=== PATIENT | female | born 1945 | race Two or more races ===

== ENCOUNTER 2021-08-21 15:19 | Inpatient (IN) | payer MEDICARE ==
[~2021-08-21] VITALS: Ht 162.6 cm; Wt 54.0 kg
--- NOTE | 2021-08-21 15:48 | NUR ---
CALLED JANINE,[phone], SHE IS THEIR RESIDENT AT [facility], DNR STATUS, SHE WILL FAX US DNR AND CLINICALS.
--- NOTE | 2021-08-21 15:50 | NUR ---
DR. HOPSON AT BS FOR EVAL.
--- NOTE | 2021-08-21 16:12 | NUR ---
MARY TEE) FROM A [facility]IALYS[facility],TREATMENT DISCONTINUED AFTER 2 HRS WHEN PATIENT BECAME "LETHARGIC AND SOB". PT EYES CLOSED BUT WILL OPEN EYES WITH PAINFUL STIMULI. PLACED ON VENT, O2 SAT 99%. RR EVEN & UNLABORED. PLACED ON MARKETING PROGRAM COORDINATOR, SR. WILL CONT TO MONITOR.
[2021-08-21 16:18] LABS: BASOPHILS % (AUTO) 0.2 % (0.0-2.0); CALCIUM, SERUM 7.7 mg/dL (8.5-10.1); CARBON DIOXIDE 26 mmol/L (21-32); CHLORIDE 104 mmol/L (98-107); CREATININE 1.3 mg/dL (0.6-1.3); EOSINOPHILS % (AUTO) 2.3 % (0.0-6.0); GLUCOSE 118 mg/dL (74-106); HEMATOCRIT 36 % (33-45); HEMOGLOBIN 10.6 g/dL (11.5-14.8); LYMPHOCYTES # (AUTO) 0.3 K/uL (0.8-4.8); LYMPHOCYTES % (AUTO) 2.2 % (20.0-44.0); MEAN CORPUSCULAR HGB CONC 30 g/dl (31.0-36.0); MEAN CORPUSCULAR VOLUME 98 fL (82-100); MONOCYTES # (AUTO) 0.8 K/uL (0.1-1.30); MONOCYTES % (AUTO) 5.6 % (2.0-12.0); NEUTROPHILS # (AUTO) 13.3 K/uL (1.8-8.9); NEUTROPHILS % (AUTO) 89.7 % (43.0-81.0); PLATELET COUNT (AUTO) 91 K/uL (150-450); RED BLOOD CELL COUNT(AUTO) 3.68 MIL/uL (4.0-5.2); SODIUM SERUM 134 mmol/L (136-145); UREA NITROGEN, BLOOD 42 mg/dL (7-18); WHITE BLOOD COUNT (AUTO) 14.8 K/uL (4.3-11.0)
[2021-08-21 16:24] LABS: ALANINE AMINOTRANSFERASE 44 U/L (12-78); ALBUMIN 1.7 g/dL (3.4-5.0); ALCOHOL, BLOOD < 3 mg/dL (0-0); ALKALINE PHOSPHATASE 364 U/L (46-116); ASPARTATE AMINOTRANSFERASE 67 U/L (15-37); BILIRUBIN,DIRECT 0.3 mg/dL (0.0-0.2); BILIRUBIN,TOTAL 0.6 mg/dL (0.2-1.0); TOTAL PROTEIN, SERUM 7.4 g/dL (6.4-8.2)
[2021-08-21 16:31] LABS: SERUM AMMONIA 21 umol/L (11-32)
[2021-08-21] MEDS ORDERED: MIDO10TA GT (16:41)
[2021-08-21] MEDS ORDERED: ACET325T53 GT (16:41)
[2021-08-21] MEDS ORDERED: PANT40TA49 GT (16:41)
[2021-08-21] MEDS ORDERED: SENN1TAB33 GT (16:41)
[2021-08-21] MEDS ORDERED: IPRA3AMP23 IH (16:41)
[2021-08-21] MEDS ORDERED: QUET25TA GT (16:41)
[2021-08-21] MEDS ORDERED: HYDR-4303 GT (16:41)
[2021-08-21] MEDS ORDERED: BUDE0.5A4 IH (16:41)
[2021-08-21] MEDS ORDERED: SIME80TA15 GT (16:41)
[2021-08-21] MEDS ORDERED: ATOR40TA GT (16:41)
[2021-08-21] MEDS ORDERED: MIDO5TAB4 PO (16:41)
[2021-08-21] MEDS ORDERED: DARB10SY IJ (16:41)
[2021-08-21] MEDS ORDERED: LEVO100T9 GT (16:41)
[2021-08-21] MEDS ORDERED: LACT10SO3 GT (16:41)
[2021-08-21] MEDS ORDERED: METO25TA6 GT (16:41)
[2021-08-21] MEDS ORDERED: SEVE800T8 GT (16:41)
[2021-08-21] MEDS ORDERED: AMIO200T5 PO (16:41)
[2021-08-21] MEDS ORDERED: ALPR0.255 GT (16:41)
[2021-08-21 16:43] LABS: THYROID STIMULATING HORMONE 75.364 uIU/mL (0.358-3.74)
[2021-08-21] MEDS ORDERED: INSU100V39 SQ (16:45)
[2021-08-21] MEDS ORDERED: INSU100V7 SQ (16:45)
[2021-08-21] MEDS ORDERED: HEPA100D33 SUBCUT (16:45)
[2021-08-21] MEDS ORDERED: ASCO500C17 GT (16:45)
[2021-08-21] MEDS ORDERED: FOLI0.8T2 PO (16:45)
[2021-08-21] MEDS ORDERED: ZINC220C6 GT (16:45)
[2021-08-21 17:04] LABS: BAND % (MANUAL) 4 % (0.0-5.0); EOSINOPHILS % (MANUAL) 2 % (0-4); LYMPHOCYTES % (MANUAL) 5 % (16-48); MONOCYTES % (MANUAL) 6 % (0-11.0); NEUTROPHILS % (MANUAL) 83 (42-76)
[2021-08-21] MEDS ORDERED: AZITHROMYCIN 500 MG in IV D5W 250 ML IV ONE (17:30)
[2021-08-21] MEDS ORDERED: CEFTRIAXONE 1 G in IV D5W 50 ML IV ONE (17:30)
--- NOTE | 2021-08-21 18:10 | NUR ---
CALLED [facility]. PAGED DR. NARANJO.
[2021-08-21] MEDS ORDERED: Z GUARD REMEDY 2 OZ OINT TP PRN (18:30)
[2021-08-21] MEDS ORDERED: MAG HYDROX/AL HYDROX/SIMETH 30 ML UDC GT PRN (18:30)
[2021-08-21] MEDS ORDERED: DEXTROSE 50%-WATER 50 ML DISP.SYRIN IV PRN (18:30)
[2021-08-21] MEDS ORDERED: ONDANSETRON HCL/PF 4 MG/2 ML VIAL IVP PRN (18:30)
[2021-08-21] MEDS ORDERED: MAGNESIUM HYDROXIDE 30 ML UDC GT PRN (18:30)
[2021-08-21] MEDS ORDERED: MIDODRINE HCL (5MG) 5 MG TABLET GT PRN (19:00)
--- NOTE | 2021-08-21 19:07 | NUR ---
PT WAS TRANSPORTED TO CT SCAN. NO RESPIRATORY DISTRESS NOTED AT THIS TIME.
--- NOTE | 2021-08-21 19:15 | NUR ---
PT TO CT VIA [facility].
--- NOTE | 2021-08-21 19:21 | NUR ---
pt returned to ER room 5
[2021-08-21] MEDS ORDERED: VANCOMYCIN 1 GM in IV D5W 250 ML IV SCH (20:00)
[2021-08-21] MEDS: ZOSYN IVPB 2.25 G in IV D5W 50ml IV SCH (20:43)
[2021-08-21] MEDS ORDERED: PANTOPRAZOLE 40 MG TABLET.DR PO SCH (21:00)
[2021-08-21] MEDS ORDERED: PANTOPRAZOLE 40 MG/PACK PACK ONE (21:16)
[2021-08-21] MEDS ORDERED: SIMETHICONE 80 MG TAB.CHEW ONE (21:16)
--- NOTE | 2021-08-21 21:17 | NUR ---
BED ASSIGNMENT: 114-1
[2021-08-21] MEDS: PANTOPRAZOLE 40 MG/PACK PACK GT SCH (21:28)
[2021-08-21] MEDS: SIMETHICONE 80 MG TAB.CHEW GT SCH (21:28)
--- NOTE | 2021-08-21 22:00 | NUR ---
report given to shelby mora
--- NOTE | 2021-08-21 22:02 | NUR ---
TRANSFERRING PT TO 114-1
--- NOTE | 2021-08-21 23:25 | NUR ---
2325 Admitted from ER 76yr old female via [facility] with Dx of Fluid Overload. Patient awake and responsive to verbal commands by mouthing words. Ventilator dependent tolerating prescribed settings. Trach intact and patent and secured at midline. Suctioned by RT with small amount of thick secretions. Admission care and assessment done. Noted with generalized edema and multiple pressure sores and skin redness. Denies pain when asked. Turned and repositioned for comfort. Bilateral heels elevated on pillows. Bed bath provided. Call light placed within reach.
[2021-08-22] VITALS: BP 132/75
[2021-08-22] MEDS: BLOOD SUGAR DIAGNOSTIC 1 EACH STRIP VI SCH ×5 (00:20→22:06)
[2021-08-22] MEDS: ATORVASTATIN 40 MG TABLET GT SCH ×2 (00:22→22:06)
[2021-08-22] MEDS: ZOSYN IVPB 2.25 G in IV D5W 50ml IV SCH ×3 (03:04→14:31)
[2021-08-22 04:00] VITALS: BP 139/73
[2021-08-22] MEDS: SIMETHICONE 80 MG TAB.CHEW GT SCH ×3 (05:00→20:35)
--- NOTE | 2021-08-22 05:43 | NUR ---
RN NOTE SIMETHICONE 80MCG NOT GIVEN NOT AVAILABLE WILL ADMINISTER WHEN AVAILABLE,ALSO METOPROLOL NOT GIVEN IN ER DUE BP WAS LOW CONTINUE TO MONITOR
--- NOTE | 2021-08-22 06:51 | NUR ---
RN NOTE PATIENT REMAINS ON ALERT ORIENTED X0 CONFUSED VENT DEPENDENT NO SOB NOT ACUTE DISTRESS NOTED ENDORSE NEXT COMING SHIFT FOR CONTINUATION OF CARE
[2021-08-22 06:58] LABS: BASOPHILS % (AUTO) 0.3 % (0.0-2.0); EOSINOPHILS % (AUTO) 0.4 % (0.0-6.0); HEMATOCRIT 34 % (33-45); HEMOGLOBIN 10.2 g/dL (11.5-14.8); LYMPHOCYTES # (AUTO) 0.7 K/uL (0.8-4.8); LYMPHOCYTES % (AUTO) 4.8 % (20.0-44.0); MEAN CORPUSCULAR HGB CONC 30 g/dl (31.0-36.0); MEAN CORPUSCULAR VOLUME 97 fL (82-100); MONOCYTES % (AUTO) 7.2 % (2.0-12.0); NEUTROPHILS # (AUTO) 12.3 K/uL (1.8-8.9); NEUTROPHILS % (AUTO) 87.3 % (43.0-81.0); PLATELET COUNT (AUTO) 72 K/uL (150-450); RED BLOOD CELL COUNT(AUTO) 3.52 MIL/uL (4.0-5.2); WHITE BLOOD COUNT (AUTO) 14.1 K/uL (4.3-11.0)
[2021-08-22] MEDS: LEVOTHYROXINE SODIUM 100 MCG TABLET GT SCH (07:56)
[2021-08-22 08:00] VITALS: BP 127/78
--- NOTE | 2021-08-22 08:00 | NUR ---
RN NOTES Received patient in bed awake in bed a/o x 1 able to make needs known by mouthing words, with trach intact connected to mechanical ventilator with prescribed settings tolerating well, no SOB noted at this time, no pain at this time, with permacath @ R chest with dressing intact no redness, no drainage noted at this time, with peripheral access on R arm G 22 patent and flushes well, safety measures in place, bed on lowest locked postion, HOB elevated siderails up for safety, call light within reach at all times, will continue to closely monitor the patient
--- NOTE | 2021-08-22 08:17 | NUR ---
WOUND CARE CONSULT: REVIEWED CHART, NURSING DOCUMENTATION AND PHOTOS WHICH INDICATE MULTIPLE WOUNDS PRESENT ON ADMISSION. DR NGUYEN AND DR DUVALL NOTIFIED OF SURGICAL AND DPM CONSULTS. FIRST STEP LOW AIRLOSS MATTRESS IS ON ORDER. RECOMMENDATIONS MADE FOR SKIN PROTECTION. DISCUSSED WITH NURSING STAFF. MD IN AGREEMENT WITH PLAN OF CARE.
[2021-08-22 08:46] LABS: CALCIUM, SERUM 7.8 mg/dL (8.5-10.1); CARBON DIOXIDE 23 mmol/L (21-32); CHLORIDE 101 mmol/L (98-107); CREATININE 1.7 mg/dL (0.6-1.3); GLUCOSE 76 mg/dL (74-106); MAGNESIUM 2.5 mg/dL (1.8-2.4); PHOSPHORUS 2.8 mg/dL (2.5-4.9); SODIUM SERUM 133 mmol/L (136-145); UREA NITROGEN, BLOOD 52 mg/dL (7-18)
[2021-08-22] MEDS: SEVELAMER CARBONATE 800 MG POWD.PACK GT SCH ×3 (08:52→17:08)
[2021-08-22] MEDS: PANTOPRAZOLE 40 MG/PACK PACK GT SCH ×2 (08:52→20:35)
[2021-08-22] MEDS: METOPROLOL TARTRATE 25 MG TABLET GT SCH ×3 (08:53→20:36)
[2021-08-22] MEDS: SENNOSIDES/DOCUSATE SODIUM 1 TAB TABLET GT SCH ×2 (08:54→17:08)
[2021-08-22] MEDS: MIDODRINE HCL (5MG) 5 MG TABLET PO SCH ×2 (08:54→17:08)
[2021-08-22] MEDS: AMIODARONE HCL 200 MG TABLET GT SCH (08:54)
[2021-08-22] MEDS ORDERED: AMIODARONE HCL 200 MG TABLET PO SCH (09:00)
[2021-08-22] MEDS ORDERED: SENNOSIDES/DOCUSATE SODIUM 1 UDTAB TABLET GT SCH (09:00)
[2021-08-22] MEDS: BUDESONIDE RESPULE INH 0.5 MG/2 ML AMPUL.NEB IH SCH ×2 (09:22→17:25)
[2021-08-22 09:57] LABS: LYMPHOCYTES % (MANUAL) 3 % (16-48); MONOCYTES % (MANUAL) 7 % (0-11.0); NEUTROPHILS % (MANUAL) 90 (42-76)
--- NOTE | 2021-08-22 11:02 | NUR ---
FARE COLLECTOR NOTES PT SEEN AND EXAMINED BY DR. HOPSON.
[2021-08-22 12:00] VITALS: BP 129/69
[2021-08-22] MEDS: NEPRO 1,000 ML BOTTLE GT PRN (15:29)
[2021-08-22 16:00] VITALS: BP 126/73
--- NOTE | 2021-08-22 17:30 | NUR ---
RN NOTES Blood sugar checked @1730 witn 91mg/dl result
[2021-08-22] MEDS: DAKINS QUARTER STRENGTH (0.125%) 480 ML BOTTLE TOP SCH (18:10)
--- NOTE | 2021-08-22 18:36 | NUR ---
RN CLOSING NOTES PATIENT IN BED, NON VERBAL ABLE TO MADE NEEDS KNOWN BY MOUTHING WORDS, ON TRACH CONNECTED TO VENTILATOR WITH PRESCRIBED SETTINGS TOLERATING WELL, NO ACUTE DISTRESS NOTED, NO SIGNS AND SYMPTOMS OF PAIN NOTED AT THIS TIME, IV ACCESS AT R ARM 6 19 SQALINE LOCKED PATENT AND FLUSHES WELL, g-TUBE IN PLACE DRY AND INTACT WITH FEEDING OF NEPRO @ 50 CC/HR [id number] WELL, NO RESIDUAL NOTED, SAFETY PREACUTION IN PLACE, HOB ELEVATED, CALL LIGHT WITHIN REACH, ALL MEDICATIONS GIVEN PRESCRIBE.
[2021-08-22 20:00] VITALS: BP 98/59
--- NOTE | 2021-08-22 20:00 | NUR ---
RN NOTE RECEIVED PT IN BED, ON WITH TRACH CONNECTED TO VENT. NOT IN AN Y DISTRESS. PT AWAKE, NON VERBAL. NO SIGNS OF PAIN. GT IN PLACE, PATENT, AUSCULTATED. ON GT FEEDING OF NEPRO AT 50ML/HR. NO RESIDUALS NOTED. KEPT HOB ELEVATED. R CHEST PERMA CATH INTACT. RHAND IV INTACT AND PATENT, FLUSHES WELL. WILL CONTINUE TO MONITOR.
[2021-08-22] MEDS ORDERED: MEROPENEM 500 MG VIAL IV ONE (20:33)
[2021-08-22] MEDS ORDERED: MEROPENEM 500 MG in IV NS 0.9% 50 ML IV SCH (21:00)
[2021-08-22] MEDS: *INSULIN REGULAR(HUMULIN R)HUM 100 UNIT/ML VIAL SQ PRN (22:07)
[2021-08-23] VITALS: BP 110/44
--- NOTE | 2021-08-23 03:57 | NUR ---
PATIENT RECEIVED ON TRACH TO VENT WITH SETTINGS OF AC 14, 400 Vt, 40%, +5. SUCTIONED WITH LAVAGE FOR MINIMAL, THIN, YELLOW SECRETIONS. AMBU BAG AT BEDSIDE. VENT ALARM AUDIBLE AND VISIBLE. TRACH PAYNE, SHAHAB SETUP, AND HME CHANGED. Addendum: 08/23/21 at 0358 by PRERNA ASHBY RT Amended: Links added.
[2021-08-23 04:00] VITALS: BP 100/61
[2021-08-23] MEDS: SIMETHICONE 80 MG TAB.CHEW GT SCH ×3 (04:46→21:09)
--- NOTE | 2021-08-23 06:55 | NUR ---
RN NOTE PATIENT SLEEPING, AROUSES EASILY. NO SIGNIFICANT CHANGES NOTED. NO SIGNS OF ANY DISTRESS. TOLERATING VENT SETTINGS. WITH O2 SAT OF 100 %. PT TOLERATES GT FEEDING, NO RESIDUALS NOTED. KEPT HOB ELEVATED. NO S/SX OF ASPIRATION NOTED. FSBS AT 123, NO INSULIN COVERAGE GIVEN. WOUND TREATMENT WERE DONE ORDERED. TURN AND REPOSITIONED. ALL SAFETY MEASURES MAINTAINED. WILL ENDORSE TO NEXT SHIFT NURSE FOR CHERYL.
[2021-08-23] MEDS: BLOOD SUGAR DIAGNOSTIC 1 EACH STRIP VI SCH ×4 (07:02→21:31)
[2021-08-23] MEDS: INSULIN REGULAR, HUMAN 100 UNIT/ML 3 ML VIAL SQ PRN ×3 (07:02→17:57)
--- NOTE | 2021-08-23 07:15 | NUR ---
RN OPENING NOTE Received patient asleep in bed appears calm and relaxed no signs of distress. On vent settings AC 14 TV 400 Fio2 40 PEEP 5. Patient is non-verbal but able to mumble when spoken to. Tele reading a.flutter 103bpm. On Nepro 50ml/hr running tolerating well. R.Hand #20 and R chest permacath dressing intact. Patient noted swelling on both arms. Safety measures maintained. Call light within reach will cont to monitor.
[2021-08-23 07:21] LABS: CALCIUM, SERUM 7.6 mg/dL (8.5-10.1); CARBON DIOXIDE 23 mmol/L (21-32); CHLORIDE 99 mmol/L (98-107); GLUCOSE 136 mg/dL (74-106); POTASSIUM 4.5 mmol/L (3.5-5.1); SODIUM SERUM 133 mmol/L (136-145); UREA NITROGEN, BLOOD 68 mg/dL (7-18)
[2021-08-23 08:00] VITALS: BP 121/61
[2021-08-23] MEDS: SEVELAMER CARBONATE 800 MG POWD.PACK GT SCH ×3 (08:20→18:29)
[2021-08-23] MEDS: PANTOPRAZOLE 40 MG/PACK PACK GT SCH ×2 (08:21→21:08)
[2021-08-23] MEDS: SENNOSIDES/DOCUSATE SODIUM 1 TAB TABLET GT SCH ×2 (08:21→17:51)
[2021-08-23] MEDS: AMIODARONE HCL 200 MG TABLET GT SCH (08:21)
[2021-08-23] MEDS: METOPROLOL TARTRATE 25 MG TABLET GT SCH ×2 (08:22→21:08)
[2021-08-23] MEDS: LEVOTHYROXINE SODIUM 100 MCG TABLET GT SCH (08:22)
[2021-08-23] MEDS: MIDODRINE HCL (5MG) 5 MG TABLET PO SCH ×2 (08:22→17:00)
[2021-08-23] MEDS: DAKINS QUARTER STRENGTH (0.125%) 480 ML BOTTLE TOP SCH (08:23)
[2021-08-23] MEDS: HYDROGEL DRESSING 90 GM TUBE TP SCH (08:23)
[2021-08-23] MEDS: BUDESONIDE RESPULE INH 0.5 MG/2 ML AMPUL.NEB IH SCH ×2 (08:28→17:00)
[2021-08-23] MEDS: MEROPENEM 500 MG in IV NS 0.9% 50 ML IV SCH ×2 (09:05→21:09)
[2021-08-23 12:00] VITALS: BP 119/46
[2021-08-23 16:00] VITALS: BP 137/64
--- NOTE | 2021-08-23 19:53 | NUR ---
RN CLOSING Note Patient in bed S/P dialysis 3L tolerated well. No signs of distress. Vent settings remain the same. All due meds given. Kept clean and dry. Vital signs within normal limits. No signs of pain or discomfort. Endorsed to recruiting scheduler nurse for patrick.
[2021-08-23 20:00] VITALS: BP 126/59
[2021-08-23] MEDS ORDERED: VANCOMYCIN 500 MG VIAL ONE (20:01)
[2021-08-23] MEDS: VANCOMYCIN 500 MG in IV D5W 100 ML IV PRN (20:15)
[2021-08-23] MEDS: ATORVASTATIN 40 MG TABLET GT SCH (21:08)
[2021-08-23] MEDS: *INSULIN REGULAR(HUMULIN R)HUM 100 UNIT/ML VIAL SQ PRN (21:32)
[2021-08-24] VITALS: BP 106/76
[2021-08-24] MEDS: NEPRO 1,000 ML BOTTLE GT PRN (03:59)
[2021-08-24 04:00] VITALS: BP 130/58
[2021-08-24] MEDS: SIMETHICONE 80 MG TAB.CHEW GT SCH ×3 (05:03→21:04)
[2021-08-24 06:23] LABS: BASOPHILS % (AUTO) 0.1 % (0.0-2.0); EOSINOPHILS % (AUTO) 1.5 % (0.0-6.0); HEMATOCRIT 35 % (33-45); HEMOGLOBIN 10.7 g/dL (11.5-14.8); LYMPHOCYTES # (AUTO) 0.5 K/uL (0.8-4.8); LYMPHOCYTES % (AUTO) 4.5 % (20.0-44.0); MEAN CORPUSCULAR HGB CONC 30 g/dl (31.0-36.0); MEAN CORPUSCULAR VOLUME 96 fL (82-100); MONOCYTES # (AUTO) 0.8 K/uL (0.1-1.30); MONOCYTES % (AUTO) 7.8 % (2.0-12.0); NEUTROPHILS # (AUTO) 9.3 K/uL (1.8-8.9); NEUTROPHILS % (AUTO) 86.1 % (43.0-81.0); PLATELET COUNT (AUTO) 84 K/uL (150-450); RED BLOOD CELL COUNT(AUTO) 3.67 MIL/uL (4.0-5.2); WHITE BLOOD COUNT (AUTO) 10.8 K/uL (4.3-11.0)
--- NOTE | 2021-08-24 07:00 | NUR ---
RN NOTES NO SIGNIFICANT CHANGES DURING SHIFT. PATIENT ALERT, NON-VERBAL. EASILY AROUSABLE. BREATHING EVEN AND UNLABORED. VENT DEPENDENT. SKIN IS WARM AND DRY TO TOUCH. AFEBRILE. PATIENT NOTED RIGHT HAND IV ACCESS AND LEFT UPPER ARM MIDLINE. PATENT WITH GOOD BLOOD RETURN. WOUND TREATMENDS OBSERVED. KEPT CLEAN AND DRY AT ALL TIMES. CALL LIGHT WITHIN REACH.
[2021-08-24 07:17] LABS: CALCIUM, SERUM 8.3 mg/dL (8.5-10.1); CARBON DIOXIDE 29 mmol/L (21-32); CHLORIDE 99 mmol/L (98-107); CREATININE 1.6 mg/dL (0.6-1.3); GLUCOSE 79 mg/dL (74-106); MAGNESIUM 2.4 mg/dL (1.8-2.4); PHOSPHORUS 3.3 mg/dL (2.5-4.9); POTASSIUM 4.2 mmol/L (3.5-5.1); SODIUM SERUM 132 mmol/L (136-145); UREA NITROGEN, BLOOD 45 mg/dL (7-18)
--- NOTE | 2021-08-24 07:27 | NUR ---
RN OPENING NOTES; RECEIVED PT IN BED SLEEPING. PT IS ALERT, NON VERBAL, BUT RESPONDS BY NODDING. PT ON VENT AC 14, TV 400 Fl02 40, PEEP 5. PT ON NEPRO FEEDING 50ML/HRX 20 HRS. ALL SAFETY MEASURES RENDERED, BED IN THE LOWEST POS. BED LOCKED WITH CALL LIGHT WITHIN REACH. WILL CONTINUE TO MONITOR.
[2021-08-24] MEDS: BLOOD SUGAR DIAGNOSTIC 1 EACH STRIP VI SCH ×4 (07:34→21:18)
[2021-08-24] MEDS: INSULIN REGULAR, HUMAN 100 UNIT/ML 3 ML VIAL SQ PRN ×3 (07:35→16:43)
--- NOTE | 2021-08-24 07:35 | NUR ---
RN NOTES; B/S TAKEN AT 92. NO INSULIN ADMINISTERED PER SLIDING SCALE.
[2021-08-24] MEDS: SEVELAMER CARBONATE 800 MG POWD.PACK GT SCH ×3 (07:54→17:31)
[2021-08-24] MEDS: LEVOTHYROXINE SODIUM 100 MCG TABLET GT SCH (07:54)
[2021-08-24 08:00] VITALS: BP 118/56
[2021-08-24] MEDS: SENNOSIDES/DOCUSATE SODIUM 1 TAB TABLET GT SCH ×2 (08:02→16:15)
[2021-08-24] MEDS: MEROPENEM 500 MG in IV NS 0.9% 50 ML IV SCH ×2 (08:02→21:07)
[2021-08-24] MEDS: PANTOPRAZOLE 40 MG/PACK PACK GT SCH ×2 (08:02→21:05)
[2021-08-24] MEDS: METOPROLOL TARTRATE 25 MG TABLET GT SCH ×2 (08:03→21:05)
[2021-08-24] MEDS: AMIODARONE HCL 200 MG TABLET GT SCH (08:03)
[2021-08-24] MEDS: MIDODRINE HCL (5MG) 5 MG TABLET PO SCH ×2 (08:04→16:10)
--- NOTE | 2021-08-24 08:04 | NUR ---
RN NOTES; MIDODRINE HELD BP 118/56.
[2021-08-24] MEDS: DAKINS QUARTER STRENGTH (0.125%) 480 ML BOTTLE TOP SCH (08:10)
[2021-08-24] MEDS: HYDROGEL DRESSING 90 GM TUBE TP SCH (08:11)
[2021-08-24 09:10] LABS: LYMPHOCYTES % (MANUAL) 3 % (16-48); MONOCYTES % (MANUAL) 5 % (0-11.0); NEUTROPHILS % (MANUAL) 92 (42-76)
--- NOTE | 2021-08-24 11:09 | NUR ---
RN NOTES; B/S TAKEN AT 99. NO INSULIN GIVEN PER SLIDING SCALE.
[2021-08-24 12:00] VITALS: BP 122/56
[2021-08-24] MEDS: BUDESONIDE RESPULE INH 0.5 MG/2 ML AMPUL.NEB IH SCH ×2 (12:08→17:23)
[2021-08-24 16:00] VITALS: BP 137/62
--- NOTE | 2021-08-24 16:12 | NUR ---
RN NOTES; MIDODRINE HELD, NO ORTHOSTATIC NOTED. PT BP 137/62. WILL CONTINUE TO MONITOR.
--- NOTE | 2021-08-24 16:43 | NUR ---
RN NOTES B/S TAKEN AT 120. NO INSULIN NEEDED PER SLIDING SCALE.
--- NOTE | 2021-08-24 18:24 | NUR ---
RN CLOSING NOTES; PT IN BED SLEEPING. PT ABLE TO TOLERATE BEING REPOSITIONED. PT IS NON VERBAL BUT CAN MAKE HER NEEDS KNOWN. JEVON MIDLINE FLUSHED, PATENT, WITH NO SIGNS OF INFILTRATION. PT ON NEPRO FEEDING AT 50ML/HR X 20HRS.. ALL MEDICATION GIVEN AND TOLERATED WELL. PT KEPT CLEAN, DRY, AND COMFORTABLE. ALL SAFETY MEASURES RENDERED, BED IN LOWEST POS, LOCKED WITH CALL LIGHT WITHIN REACH. NO SIGNIFICANT CHANGES IN PT HEALTH STATUS. ENDORSED TO SALES MERCHANDISING SPECIALIST RN IN STABLE CONDITION.
[2021-08-24 20:00] VITALS: BP 136/74
[2021-08-24] MEDS: ATORVASTATIN 40 MG TABLET GT SCH (21:04)
[2021-08-24] MEDS: *INSULIN REGULAR(HUMULIN R)HUM 100 UNIT/ML VIAL SQ PRN (21:18)
--- NOTE | 2021-08-24 22:30 | NUR ---
RN NOTES; BLOOD SUGAR TAKEN AT 127MH/DL, NO INSULIN GIVEN PER SLIDING SCALE.
[2021-08-25] VITALS: BP 141/68
[2021-08-25 04:00] VITALS: BP 151/60
[2021-08-25] MEDS: SIMETHICONE 80 MG TAB.CHEW GT SCH ×3 (04:52→21:08)
[2021-08-25 07:13] LABS: BASOPHILS % (AUTO) 0.2 % (0.0-2.0); EOSINOPHILS % (AUTO) 1.4 % (0.0-6.0); HEMATOCRIT 35 % (33-45); HEMOGLOBIN 10.6 g/dL (11.5-14.8); MEAN CORPUSCULAR HGB CONC 30 g/dl (31.0-36.0); MEAN CORPUSCULAR VOLUME 96 fL (82-100); MONOCYTES # (AUTO) 1.2 K/uL (0.1-1.30); MONOCYTES % (AUTO) 11.5 % (2.0-12.0); NEUTROPHILS % (AUTO) 76.9 % (43.0-81.0); PLATELET COUNT (AUTO) 86 K/uL (150-450); RED BLOOD CELL COUNT(AUTO) 3.65 MIL/uL (4.0-5.2); WHITE BLOOD COUNT (AUTO) 10.5 K/uL (4.3-11.0)
--- NOTE | 2021-08-25 07:20 | NUR ---
RN CLOSING NOTES, PATIENT IN BED ASLEEP, ON MECHANICAL VENTILATOR , NO SO/ACUTE DISTRESS NOTED THROUGHOUT THE NIGHT, JEVON MIDLINE PATENT AND INTACT, NO SIGNS OF INFILTRATION, GT IN PLACE, ON NEPRO FEEDING AT 50ML/HR X 20HRS, ON AT 0400 , CLEAN AND DRY, ALL SAFETY MEASURES RENDERED, BED LOCKED AND LOWEST POSITION, CALL LIGHT WITHIN REACH, NO SIGNIFICANT CHANGE IN CONDITION, ENDORSED TO NIEVES MOSES FOR CONTINUATION OF CARE.
--- NOTE | 2021-08-25 07:20 | NUR ---
RN OPENING NOTES; PT IN BED SLEEPING IN SUP POS. PT ALERT, NON VERBAL, BUT CAN MAKE NEEDS KNOWN. PT ON VENT AC 14, TV 400 Fl02 40, PEEP 5. PT ON NEPRO FEEDING 50ML/HRX 20 HRS. PT IS TO HAVE DIALYSIS TODAY. ALL SAFETY MEASURES RENDERED, BED IN THE LOWEST POS. BED LOCKED WITH CALL LIGHT WITHIN REACH. WILL CONTINUE TO MONITOR.
[2021-08-25] MEDS: INSULIN REGULAR, HUMAN 100 UNIT/ML 3 ML VIAL SQ PRN ×3 (07:29→16:12)
[2021-08-25] MEDS: BLOOD SUGAR DIAGNOSTIC 1 EACH STRIP VI SCH ×4 (07:29→21:29)
--- NOTE | 2021-08-25 07:29 | NUR ---
RN NOTES; B/S TAKEN AT 106. NO INSULIN NEEDED PER SLIDING SCALE.
[2021-08-25] MEDS: SEVELAMER CARBONATE 800 MG POWD.PACK GT SCH ×3 (07:40→17:11)
[2021-08-25] MEDS: LEVOTHYROXINE SODIUM 100 MCG TABLET GT SCH (07:40)
[2021-08-25 07:57] LABS: CALCIUM, SERUM 8.4 mg/dL (8.5-10.1); CARBON DIOXIDE 26 mmol/L (21-32); CHLORIDE 99 mmol/L (98-107); GLUCOSE 123 mg/dL (74-106); MAGNESIUM 2.6 mg/dL (1.8-2.4); PHOSPHORUS 3.9 mg/dL (2.5-4.9); POTASSIUM 4.4 mmol/L (3.5-5.1); SODIUM SERUM 133 mmol/L (136-145); UREA NITROGEN, BLOOD 61 mg/dL (7-18)
[2021-08-25 08:00] VITALS: BP 118/56
[2021-08-25] MEDS: SENNOSIDES/DOCUSATE SODIUM 1 TAB TABLET GT SCH ×2 (08:02→16:12)
[2021-08-25] MEDS: PANTOPRAZOLE 40 MG/PACK PACK GT SCH ×2 (08:02→21:08)
[2021-08-25] MEDS: MEROPENEM 500 MG in IV NS 0.9% 50 ML IV SCH ×2 (08:02→21:13)
[2021-08-25] MEDS: AMIODARONE HCL 200 MG TABLET GT SCH (08:03)
[2021-08-25] MEDS: MIDODRINE HCL (5MG) 5 MG TABLET PO SCH ×2 (08:03→16:11)
[2021-08-25] MEDS: METOPROLOL TARTRATE 25 MG TABLET GT SCH ×2 (08:03→21:08)
--- NOTE | 2021-08-25 08:04 | NUR ---
RN NOTES; MIDODRINE HELD, PT BP 146/83. WILL CONTINUE TO MONITOR.
[2021-08-25] MEDS: DAKINS QUARTER STRENGTH (0.125%) 480 ML BOTTLE TOP SCH (08:11)
[2021-08-25] MEDS: HYDROGEL DRESSING 90 GM TUBE TP SCH (08:11)
[2021-08-25] MEDS: NEPRO 1,000 ML BOTTLE GT PRN (08:56)
[2021-08-25] MEDS: BUDESONIDE RESPULE INH 0.5 MG/2 ML AMPUL.NEB IH SCH (09:12)
--- NOTE | 2021-08-25 11:08 | NUR ---
RN NOTES; PT B/S TAKEN AT 87. NO INSULIN NEEDED PER SLIDING SCALE
[2021-08-25 12:00] VITALS: BP 137/74
[2021-08-25 16:00] VITALS: BP 123/72
--- NOTE | 2021-08-25 18:20 | NUR ---
N CLOSING NOTES; PT IN SUPINE POS. SLEEPING. PT IS NON VERBAL BUT CAN MAKE HER NEEDS KNOWN. JEVON MIDLINE FLUSHED, PATENT, WITH NO SIGNS OF INFILTRATION. PT ON NEPRO FEEDING AT 50ML/HR X 20HRS.. ALL MEDICATION GIVEN AND TOLERATED WELL. PT KEPT CLEAN, DRY, AND COMFORTABLE. ALL SAFETY MEASURES RENDERED, BED IN LOWEST POS, LOCKED WITH CALL LIGHT WITHIN REACH. NO SIGNIFICANT CHANGES IN PT HEALTH STATUS. ENDORSED TO INFANTRYMAN RN IN STABLE CONDITION.
--- NOTE | 2021-08-25 19:35 | NUR ---
RN INITIAL NOTES, PATIENT IN BED A/O TO SELF MOUTH WORDS, GETTING DEBRIDEMENT OF SACRAL AND BILATERAL ISCHIUM WOUNDS AT THIS TIME, PATIENT TOLERATED WELL, NO SO/ACUTE DISTRESS NOTED AT THIS TIME, ON MECHANICAL VENTILATOR, A-FLUTTER ON TELE MONITOR, HR IN 90S AT THIS TIME, GT IN PLACED AND FEEDING INFUSING WELL, NOTED BM AT THIS TIME, CLEANED PATIENT, DR ABEBA AGRAWAL CLEAN, SUCTIONED WELL, BED LOCKED AND LOWEST POSITION, ALL SAFETY MEASURES IMPLEMENTED, WILL CONTINUE TO MONITOR CLOSELY.
[2021-08-25 20:00] VITALS: BP 135/78
[2021-08-25] MEDS: ACETAMINOPHEN 650 MG/20.3 ML UDC PO PRN (21:08)
[2021-08-25] MEDS: ATORVASTATIN 40 MG TABLET GT SCH (21:08)
[2021-08-25] MEDS: *INSULIN REGULAR(HUMULIN R)HUM 100 UNIT/ML VIAL SQ PRN (21:31)
[2021-08-26] VITALS: BP 137/80
[2021-08-26 04:00] VITALS: BP 146/75
[2021-08-26] MEDS: SIMETHICONE 80 MG TAB.CHEW GT SCH ×3 (05:24→20:41)
--- NOTE | 2021-08-26 06:31 | NUR ---
RN NOTES, NO SIGNIFICANT CHANGE IN CONDITION DURING THE NIGHT, CONT ON MECHANICAL VENTILATOR, NO SOB/ACUTE DISTRESS NOTED, WILL START HD AT THIS TIME, ALL NEED PROVIDED, DRY AND CLEAN, WILL ENDORSE CONTINUITY OF CARE TO ONCOMING NURSE
[2021-08-26 06:55] LABS: IRON, SERUM 26 ug/dl (50-175); TOTAL IRON BINDING CAPACITY 111 ug/dl (250-450)
[2021-08-26 07:06] LABS: BASOPHILS % (AUTO) 0.2 % (0.0-2.0); EOSINOPHILS % (AUTO) 2.7 % (0.0-6.0); HEMATOCRIT 34 % (33-45); HEMOGLOBIN 10.2 g/dL (11.5-14.8); LYMPHOCYTES # (AUTO) 1.1 K/uL (0.8-4.8); LYMPHOCYTES % (AUTO) 10.2 % (20.0-44.0); MEAN CORPUSCULAR HGB CONC 30 g/dl (31.0-36.0); MEAN CORPUSCULAR VOLUME 95 fL (82-100); MONOCYTES % (AUTO) 9.5 % (2.0-12.0); NEUTROPHILS # (AUTO) 8.5 K/uL (1.8-8.9); NEUTROPHILS % (AUTO) 77.4 % (43.0-81.0); PLATELET COUNT (AUTO) 98 K/uL (150-450); WHITE BLOOD COUNT (AUTO) 10.9 K/uL (4.3-11.0)
[2021-08-26 07:07] LABS: HEPATITIS Be AB Negative (Negative)
[2021-08-26 07:10] LABS: CALCIUM, SERUM 8.1 mg/dL (8.5-10.1); CARBON DIOXIDE 26 mmol/L (21-32); CHLORIDE 97 mmol/L (98-107); CREATININE 2.3 mg/dL (0.6-1.3); GLUCOSE 127 mg/dL (74-106); POTASSIUM 4.6 mmol/L (3.5-5.1); SODIUM SERUM 131 mmol/L (136-145); UREA NITROGEN, BLOOD 75 mg/dL (7-18)
[2021-08-26 07:23] LABS: FERRITIN 1411 ng/mL (8-388)
--- NOTE | 2021-08-26 07:23 | NUR ---
RN OPENING NOTES; PT SLEEPING IN BED, IN R SIDE LYING POS. PT ALERT, NON VERBAL,. PT ON VENT AC 14, TV 400 Fl02 40, PEEP 5. PT ON NEPRO FEEDING 50ML/HRX 20 HRS. PT IS CURRENTLY HAVING DIALYSIS TREATMENT. ALL SAFETY MEASURES RENDERED, BED IN THE LOWEST POS. BED LOCKED WITH CALL LIGHT WITHIN REACH. WILL CONTINUE TO MONITOR.
[2021-08-26] MEDS: BLOOD SUGAR DIAGNOSTIC 1 EACH STRIP VI SCH ×4 (07:34→22:05)
[2021-08-26] MEDS: INSULIN REGULAR, HUMAN 100 UNIT/ML 3 ML VIAL SQ PRN ×2 (07:35→11:54)
--- NOTE | 2021-08-26 07:36 | NUR ---
RN NOTES; B/S TAKEN AT 124. NO INSULIN NEEDED PER SLIDING SCALE.
[2021-08-26 08:00] VITALS: BP 128/79
[2021-08-26] MEDS: PANTOPRAZOLE 40 MG/PACK PACK GT SCH ×2 (08:19→20:41)
[2021-08-26] MEDS: MEROPENEM 500 MG in IV NS 0.9% 50 ML IV SCH ×2 (08:19→20:50)
[2021-08-26] MEDS: SEVELAMER CARBONATE 800 MG POWD.PACK GT SCH ×3 (08:19→17:01)
[2021-08-26] MEDS: SENNOSIDES/DOCUSATE SODIUM 1 TAB TABLET GT SCH ×2 (08:19→17:01)
[2021-08-26] MEDS: LEVOTHYROXINE SODIUM 100 MCG TABLET GT SCH (08:19)
[2021-08-26] MEDS: DAKINS QUARTER STRENGTH (0.125%) 480 ML BOTTLE TOP SCH (08:22)
[2021-08-26] MEDS: HYDROGEL DRESSING 90 GM TUBE TP SCH (08:23)
[2021-08-26] MEDS: BUDESONIDE RESPULE INH 0.5 MG/2 ML AMPUL.NEB IH SCH ×3 (09:00→17:00)
[2021-08-26] MEDS: MIDODRINE HCL (5MG) 5 MG TABLET PO SCH ×2 (09:00→16:57)
[2021-08-26] MEDS: AMIODARONE HCL 200 MG TABLET GT SCH (09:12)
[2021-08-26] MEDS: METOPROLOL TARTRATE 25 MG TABLET GT SCH ×2 (09:12→20:41)
--- NOTE | 2021-08-26 09:13 | NUR ---
RN NOTES; MIDODRINE HELD PT BP 128/79
[2021-08-26] MEDS: NEPRO 1,000 ML BOTTLE GT PRN (10:48)
[2021-08-26 12:00] VITALS: BP 135/94
[2021-08-26 12:53] LABS: T4 (THYROXINE) 4.3 ug/dL (4.7-13.3); THYROID STIMULATING HORMONE 55.654 uIU/mL (0.358-3.74)
[2021-08-26] MEDS: VANCOMYCIN 500 MG in IV D5W 100 ML IV PRN (13:50)
--- NOTE | 2021-08-26 15:16 | NUR ---
RN NOTE Received report from Renaldo MOSES for continuation of care.
--- NOTE | 2021-08-26 15:16 | NUR ---
RN NOTES GAVE REPORT TO JOSUÉ WEN FOR CONTINUITY OF CARE. PT ENDORSED IN STABLE CONDITION.
[2021-08-26 16:00] VITALS: BP 135/100
--- NOTE | 2021-08-26 16:54 | NUR ---
RN NOTE B/S 109 no insulin coverage per protocol.
--- NOTE | 2021-08-26 18:45 | NUR ---
MEDICAL CENTER MANAGER CLOSING NOTES Patient is Alert to stimuli, non verbal not oriented, Telereading A-flutter. On mechanical vent tolerating settings well. Enteral feeding ongoing Nephro @50cc/hr. Wound care rendered, PM care rendered, repositioned accordingly. Safety precautions implemented, bed locked in lowest position, call light within reach. Per hand out report-HD done today removed 2L.
--- NOTE | 2021-08-26 18:48 | NUR ---
RN NOTE Pulmicort inh-Refer to RT notes for administration.
[2021-08-26 20:00] VITALS: BP 142/88
[2021-08-26] MEDS: ACETAMINOPHEN 650 MG/20.3 ML UDC PO PRN (20:41)
[2021-08-26] MEDS: ATORVASTATIN 40 MG TABLET GT SCH (21:04)
[2021-08-27] VITALS: BP 154/73
[2021-08-27] MEDS: ACETAMINOPHEN 650 MG/20.3 ML UDC PO PRN (03:28)
--- NOTE | 2021-08-27 03:37 | NUR ---
SCHOOL LABORATORY TECHNICIAN NOTE PATIENT EXHIBITING PAIN VIA FLACC SCORE OF 2-- FACIAL GRIMACING AND SHOWN BY V/S. GIVEN TYLENOL AT THIS TIME.
[2021-08-27 04:00] VITALS: BP 151/82
[2021-08-27] MEDS: SIMETHICONE 80 MG TAB.CHEW GT SCH ×3 (04:42→21:15)
[2021-08-27 06:29] LABS: BASOPHILS % (AUTO) 0.1 % (0.0-2.0); EOSINOPHILS % (AUTO) 3.9 % (0.0-6.0); HEMATOCRIT 34 % (33-45); HEMOGLOBIN 10.3 g/dL (11.5-14.8); LYMPHOCYTES % (AUTO) 8.6 % (20.0-44.0); MEAN CORPUSCULAR HGB CONC 30 g/dl (31.0-36.0); MEAN CORPUSCULAR VOLUME 95 fL (82-100); MONOCYTES # (AUTO) 0.9 K/uL (0.1-1.30); MONOCYTES % (AUTO) 8.1 % (2.0-12.0); NEUTROPHILS # (AUTO) 8.8 K/uL (1.8-8.9); NEUTROPHILS % (AUTO) 79.3 % (43.0-81.0); PLATELET COUNT (AUTO) 92 K/uL (150-450); WHITE BLOOD COUNT (AUTO) 11.1 K/uL (4.3-11.0)
[2021-08-27] MEDS: BLOOD SUGAR DIAGNOSTIC 1 EACH STRIP VI SCH ×4 (06:50→21:34)
--- NOTE | 2021-08-27 07:09 | NUR ---
INSTRUCTOR OF SPANISH CLOSING NOTES PATIENT IN BED WITH EYES CLOSED, EASY TO AROUSE. NO S/S OF APPARENT DISTRESS-- TRACH DEPENDENT. NOT EXHIBITING PAIN VIA FLACC. TELE MONITOR BOX READING A-FLUTTER. NO FLUIDS RUNNING AT THIS TIME. G-TUBE IN PLACE RUNNING NEPRO @50ML/HR-- TOLERATING. ALL NEEDS ATTENDED. SAFETY KEPT IN PLACE THE WHOLE SHIFT. NO SIGNIFICANT CHANGE SINCE LAST SHIFT. WILL ENDORSE CARE TO MORNING SHIFT RN.
[2021-08-27 07:15] LABS: CARBON DIOXIDE 29 mmol/L (21-32); CHLORIDE 98 mmol/L (98-107); CREATININE 1.9 mg/dL (0.6-1.3); GLUCOSE 107 mg/dL (74-106); POTASSIUM 4.2 mmol/L (3.5-5.1); SODIUM SERUM 132 mmol/L (136-145); UREA NITROGEN, BLOOD 47 mg/dL (7-18)
[2021-08-27] MEDS: LEVOTHYROXINE SODIUM 100 MCG TABLET GT SCH (07:28)
[2021-08-27] MEDS: SEVELAMER CARBONATE 800 MG POWD.PACK GT SCH ×3 (07:28→18:00)
[2021-08-27 08:00] VITALS: BP 148/81
--- NOTE | 2021-08-27 08:00 | NUR ---
NURSE OPENING NOTE. RECEIVED REPORT FROM OUT GOING NURSE. PATIENT IN STABLE CONDITION WITH NO SIGN OF DISTRESS. PATIENT PRESENT WITH MULTIPLE WOUNDS UPON ADMISSION. PATIENT A/O X1. GRIMACING FACIAL EXPRESSION WHEN IN PAIN. RECEIVING FEEDING THROUGH G-TUBE VIA NEPRO @50ML/HR. 10ML RESIDUAL WAS OBSERVED. ALL SAFETY MEASURE IN PLACE. BED IN LOWEST POSITION WITH HOB ELEVATED AT 30 DEGRE. WILL CONTINUE TO MONITOR
[2021-08-27] MEDS: MEROPENEM 500 MG in IV NS 0.9% 50 ML IV SCH (08:02)
[2021-08-27] MEDS: SENNOSIDES/DOCUSATE SODIUM 1 TAB TABLET GT SCH ×2 (08:19→18:00)
[2021-08-27] MEDS: METOPROLOL TARTRATE 25 MG TABLET GT SCH ×2 (08:19→21:15)
[2021-08-27] MEDS: PANTOPRAZOLE 40 MG/PACK PACK GT SCH ×2 (08:19→21:15)
[2021-08-27] MEDS: AMIODARONE HCL 200 MG TABLET GT SCH (08:20)
[2021-08-27] MEDS: MIDODRINE HCL (5MG) 5 MG TABLET PO SCH ×2 (08:21→18:01)
[2021-08-27] MEDS: DAKINS QUARTER STRENGTH (0.125%) 480 ML BOTTLE TOP SCH (08:22)
[2021-08-27] MEDS: HYDROGEL DRESSING 90 GM TUBE TP SCH (08:22)
[2021-08-27] MEDS: BUDESONIDE RESPULE INH 0.5 MG/2 ML AMPUL.NEB IH SCH ×2 (08:31→17:01)
[2021-08-27 12:00] VITALS: BP 145/82
[2021-08-27] MEDS: INSULIN REGULAR, HUMAN 100 UNIT/ML 3 ML VIAL SQ PRN (12:05)
[2021-08-27] MEDS ORDERED: EPOETIN ALFA-EPBX 10,000 UNIT/ML VIAL IV ONE (15:00)
[2021-08-27 16:00] VITALS: BP 127/71
[2021-08-27] MEDS: NEPRO 1,000 ML BOTTLE GT PRN (18:04)
--- NOTE | 2021-08-27 19:30 | NUR ---
RN NOTE RECEIVED PT IN BED, ON WITH TRACH CONNECTED TO VENT. NOT IN AN Y DISTRESS, O2 SAT AT 100%. PT AWAKE,ALERT TO STIMULI, ABLE TO NOD, DENIES PAIN. NON VERBAL. GT IN PLACE, PATENT, AUSCULTATED. ON GT FEEDING OF NEPRO AT 50ML/HR. NO RESIDUALS NOTED. KEPT HOB ELEVATED. R CHEST PERMA CATH INTACT. JEVON MIDLINE PATENT AND INTACT, NO SIGNS OF INFECTION NOTED. ALL SAFETY IN PLACE. WILL CONTINUE TO MONITOR.
--- NOTE | 2021-08-27 19:40 | NUR ---
NURSE CLOSING NOTE. PATIENT REMAIN STABLE THROUGH OUT SHIFT. REMAIN ON NEPRO FEEDING @50MML/HR. ALL DAY SHIFT MEDICATION WAS GIVEN. ALL SAFETY MEASURE IN PLACE. BED ON THE LOWEST POSITION WITH HEAD OF THE BED ELEVATED AT 30 DEGREE. 3 SIDE RAIL UP. CALL LIGHT WITHIN REACH. REPORT WAS GIVEN TO ON COMING NURSE.
[2021-08-27 20:00] VITALS: BP 134/72
[2021-08-27] MEDS: ATORVASTATIN 40 MG TABLET GT SCH (21:15)
[2021-08-27] MEDS: *INSULIN REGULAR(HUMULIN R)HUM 100 UNIT/ML VIAL SQ PRN (21:35)
[2021-08-28] VITALS: BP 153/77
[2021-08-28 04:00] VITALS: BP 135/72
[2021-08-28] MEDS: SIMETHICONE 80 MG TAB.CHEW GT SCH ×2 (04:56→16:05)
[2021-08-28 06:13] LABS: BASOPHILS % (AUTO) 0.2 % (0.0-2.0); EOSINOPHILS % (AUTO) 2.2 % (0.0-6.0); HEMATOCRIT 35 % (33-45); HEMOGLOBIN 10.6 g/dL (11.5-14.8); LYMPHOCYTES # (AUTO) 0.9 K/uL (0.8-4.8); LYMPHOCYTES % (AUTO) 7.2 % (20.0-44.0); MEAN CORPUSCULAR HGB CONC 30 g/dl (31.0-36.0); MEAN CORPUSCULAR VOLUME 93 fL (82-100); MONOCYTES # (AUTO) 0.8 K/uL (0.1-1.30); MONOCYTES % (AUTO) 6.2 % (2.0-12.0); NEUTROPHILS # (AUTO) 10.4 K/uL (1.8-8.9); NEUTROPHILS % (AUTO) 84.2 % (43.0-81.0); PLATELET COUNT (AUTO) 124 K/uL (150-450); RED BLOOD CELL COUNT(AUTO) 3.73 MIL/uL (4.0-5.2); WHITE BLOOD COUNT (AUTO) 12.4 K/uL (4.3-11.0)
[2021-08-28 06:58] LABS: CALCIUM, SERUM 7.8 mg/dL (8.5-10.1); CARBON DIOXIDE 26 mmol/L (21-32); CHLORIDE 96 mmol/L (98-107); GLUCOSE 113 mg/dL (74-106); SODIUM SERUM 127 mmol/L (136-145); UREA NITROGEN, BLOOD 58 mg/dL (7-18)
--- NOTE | 2021-08-28 07:15 | NUR ---
RN NOTE PT IN BED AWAKE, RESPONDS TO STIMULI, NO SIGNIFICANT CHANGES NOTED. TOLERATES VENT SETTINGS NO SIGNS OF DISTRESS NOTED. PT CONTINUE ON GT FEEDING OF NEPRO. NO RESIDUALS WERE NOTED. KEPT HOB ELEVATED. WOUND TREATMENT WERE DONE ORDERED, TURNED AND REPOSITIONED. ALL SAFETY MAINTAINED, ENDORSED TO NEXT SHIFT NURSE FOR CHERYL.
[2021-08-28] MEDS ORDERED: LEVOTHYROXINE SODIUM 125 MCG TABLET GT SCH (07:30)
[2021-08-28 08:00] VITALS: BP 121/65
[2021-08-28] MEDS ORDERED: EPOETIN ALFA (10,000 UNIT) 10,000 UNIT/ML VIAL IV ONE (08:00)
[2021-08-28] MEDS: SENNOSIDES/DOCUSATE SODIUM 1 TAB TABLET GT SCH ×2 (08:03→18:09)
[2021-08-28] MEDS: AMIODARONE HCL 200 MG TABLET GT SCH (08:04)
[2021-08-28] MEDS: BLOOD SUGAR DIAGNOSTIC 1 EACH STRIP VI SCH ×2 (08:05→12:00)
[2021-08-28] MEDS: METOPROLOL TARTRATE 25 MG TABLET GT SCH (08:05)
[2021-08-28] MEDS: MIDODRINE HCL (5MG) 5 MG TABLET PO SCH ×2 (08:06→17:00)
[2021-08-28] MEDS: SEVELAMER CARBONATE 800 MG POWD.PACK GT SCH ×3 (08:06→18:09)
[2021-08-28] MEDS: PANTOPRAZOLE 40 MG/PACK PACK GT SCH (08:06)
[2021-08-28] MEDS: BUDESONIDE RESPULE INH 0.5 MG/2 ML AMPUL.NEB IH SCH ×2 (08:19→17:03)
[2021-08-28] MEDS: DAKINS QUARTER STRENGTH (0.125%) 480 ML BOTTLE TOP SCH (09:32)
[2021-08-28] MEDS: HYDROGEL DRESSING 90 GM TUBE TP SCH (09:33)
[2021-08-28 12:00] VITALS: BP 123/68
[2021-08-28 16:00] VITALS: BP 140/65
[2021-08-28] MEDS ORDERED: MIDODRINE HCL (5MG) 5 MG TABLET GT SCH (18:00)
[2021-08-28 18:10] VITALS: BP 140/65
--- NOTE | 2021-08-28 19:55 | NUR ---
RN notes In bed resting comfortably, taken by ambulance for dc to congregate living in stable condition. Vital signs wnl. No physical manifestation of pain or discomfort. Breathing even and unlabored. Vent setting well tolerated. Endorsement given to EMS. Seen by RT.
== END 2021-08-28 19:52 | DRG 166 ==
LOC: ER 15:26 → EDBD 15:26 → TELE1 22:31
PROVIDERS: ADMIT Internal Medicine; ATTEND Family Medicine
PROC: 5A1955Z Respiratory Ventilation, Greater than 96 Consecutive Hours (ICD-10-PCS; principal; 2021-08-21)
PROC: 5A1D70Z Performance of Urinary Filtration, Intermittent, Less than 6 Hours Per Day (ICD-10-PCS; 2021-08-23)
PROC: 0JB90ZZ Excision of Buttock Subcutaneous Tissue and Fascia, Open Approach (ICD-10-PCS; 2021-08-25)
PROC: 0KBP0ZZ Excision of Left Hip Muscle, Open Approach (ICD-10-PCS; 2021-08-25)
PROC: 0KBN0ZZ Excision of Right Hip Muscle, Open Approach (ICD-10-PCS; 2021-08-25)
DX: J15.9 Unspecified bacterial pneumonia (principal); J96.21 Acute and chronic respiratory failure with hypoxia; L89.214 Pressure ulcer of right hip, stage 4; L89.223 Pressure ulcer of left hip, stage 3; L89.154 Pressure ulcer of sacral region, stage 4; G93.41 Metabolic encephalopathy; N18.6 End stage renal disease; E43 Unspecified severe protein-calorie malnutrition; I12.0 Hypertensive chronic kidney disease with stage 5 chronic kidney disease or end stage renal disease; Z99.11 Dependence on respirator [ventilator] status; J90 Pleural effusion, not elsewhere classified; E87.1 Hypo-osmolality and hyponatremia; J84.9 Interstitial pulmonary disease, unspecified; J81.1 Chronic pulmonary edema; Z99.2 Dependence on renal dialysis; E78.5 Hyperlipidemia, unspecified; D69.6 Thrombocytopenia, unspecified; I48.0 Paroxysmal atrial fibrillation; Z93.0 Tracheostomy status; Z93.1 Gastrostomy status; R13.10 Dysphagia, unspecified; Z20.822 Contact with and (suspected) exposure to COVID-19; Z66 Do not resuscitate; D63.8 Anemia in other chronic diseases classified elsewhere; E87.70 Fluid overload, unspecified; E03.9 Hypothyroidism, unspecified; Z79.01 Long term (current) use of anticoagulants; L97.529 Non-pressure chronic ulcer of other part of left foot with unspecified severity; Z79.4 Long term (current) use of insulin; Z79.51 Long term (current) use of inhaled steroids
CPT/HCPCS: 31720; 36415; 70450-TC; 71045-TC; 71250-TC; 73630-TC; 80048-TC; 80076-TC; 80202-TC; 82140-TC; 82728-TC; 82962-TC; 83540-TC; 83605-TC; 83735-TC; 83880; 84100-TC; 84436-TC; 84439-TC; 84443-TC; 84480; 84484-TC; 85025-TC; 85730-TC; 86706; 86707; 87040-TC; 87081-TC; 87340; 87350; 90935-TC; 94002-TC; 94003-TC; 94760-TC; 94762-TC; 94799-TC; 99082-TC; A4217; A4623; A6248; A6253; A6403; G0378; G0480; J0885; J1815; J2185; J2543; J3370; J7030; J7050; J7060; U0003